=== PATIENT | female | born 1940 | race African-American/Black ===

== ENCOUNTER 2020-06-12 23:24 | Emergency (ER) | payer BC ==
[~2020-06-12] VITALS: Ht 160 cm; Wt 60.0 kg
[2020-06-12 23:37] VITALS: BP 141/57
== END 2020-06-12 23:45 | disposition left against medical advice (07) ==
LOC: ER 23:24
DX: I10 Essential (primary) hypertension (principal); Z53.21 Procedure and treatment not carried out due to patient leaving prior to being seen by health care provider